=== PATIENT | female | born 1935 | race Caucasian/White ===

== ENCOUNTER → 2017-08-30 | Outpatient (CLI) | payer OTHER ==
[~2017-08-30] MED LIST: AMLO5TAB2 PO; BIOT10005 PO; CHOL200074 PO; CITA10TA7 PO; IRON PO; MELO-106 PO; PANT40TA25 PO; SIMV20TA6 PO; VALS320T16 PO
== END | disposition home or self-care (01) ==
LOC: RAH 10:02
PROVIDERS: ATTEND Internal Medicine
DX: K44.9 Diaphragmatic hernia without obstruction or gangrene (principal); K21.9 Gastro-esophageal reflux disease without esophagitis
CPT/HCPCS: 74240

== ENCOUNTER 2018-12-27 08:00 | Inpatient (IN) | payer OTHER ==
[2018-12-26 17:57] LABS: POTASSIUM 4.5 mmol/L (3.5-5.1)
[2018-12-26 18:03] VITALS: BP 140/71
[2018-12-27] VITALS (23 sets, daily range): BP systolic 95–146; BP diastolic 40–70
[~2018-12-27] VITALS: Ht 154.9 cm; Wt 74.6 kg
[2018-12-27] MEDS: LACTATED RINGERS 1000ML 1,000 ML IV SCH ×2 (06:00→21:00)
[2018-12-27] MEDS: VANCOMYCIN HCL 1 GM VIAL TP SCH ×2 (06:00→14:00)
[~2018-12-27 08:00] MED LIST changes: -AMLO5TAB2 PO; +AMLO5TAB9 PO; -BIOT10005 PO; +BIOTIN PO; -CHOL200074 PO; +MONT10TA24 PO; +PHARMACY COMMUNICATION MISC SCH; +SIMV-43 PO; -SIMV20TA6 PO; +VITAMIN D3 PO
[2018-12-27] MEDS: CEFAZOLIN SODIUM 1 GM VIAL ONE ×2 (10:28→13:30)
[2018-12-27] MEDS ORDERED: MIDAZOLAM HCL 1 MG/ML 2ML VIAL ONE (12:49)
[2018-12-27] MEDS ORDERED: DEXAMETHASONE SOD PHOSPHATE 10MG/ML 1ML VIAL ONE (12:49)
[2018-12-27] MEDS ORDERED: ONDANSETRON HCL 4 MG/2 ML VIAL ONE (12:49)
[2018-12-27] MEDS ORDERED: LIDOCAINE PF 2% 5ML ABBOJECT ONE (12:49)
[2018-12-27] MEDS ORDERED: PROPOFOL 10 MG/ML 20ML VIAL IV ONE (12:49)
[2018-12-27] MEDS ORDERED: FENTANYL CITRATE PF 50 MCG/1 ML 2ML VIAL ONE (12:51)
[2018-12-27] MEDS ORDERED: ROCURONIUM 10MG/1ML SYR 10 MG/ML ML ONE (12:52)
[2018-12-27] MEDS ORDERED: VANCOMYCIN HCL 1 GM VIAL ONE (13:37)
[2018-12-27] MEDS ORDERED: TRAMADOL HCL 50 MG TABLET PO PRN (14:15)
[2018-12-27] MEDS ORDERED: OXYCODONE HCL 5 MG TAB PO PRN ×2 (14:15)
[2018-12-27] MEDS: SODIUM CHLORIDE 0.9% 1000ML 1,000 ML IV SCH ×2 (14:20→23:36)
--- NOTE | 2018-12-27 18:30 | NUR ---
INITIAL MET W PT A [place] SPOUSE [facility] AT [facility]- PT S/P PROCEUDR ON POST OP SEROMA. ADDRESSES VERIFIED AND UPDATED, PHYSICAL ADDRESS ADDED. PT AAOX3, LIVES WITH [facility] WHO WILL PROVIDE TRANSPORT, HAS DME AT HOME- [facility]- HAS CURRENT HOME HEALTH- MCGREGOR, ELIZABETH//C JOHN SIGNED NOTE IN CHART FOR MD IN AM TO REMIND TO GIVE NEW ORDER FOR HH/ DRGS ETC. PRIMARY RN AWARE, CM TO FOLLOW UP CM TO FOLLOW UP
[2018-12-27] MEDS: RIFAMPIN 300 MG CAPSULE PO SCH (20:36)
[2018-12-27] MEDS: CEFAZOLIN SODIUM 1 GM VIAL IVP SCH (20:36)
[2018-12-27] MEDS: ASPIRIN 81 MG EC TAB PO SCH (20:36)
[2018-12-27] MEDS ORDERED: MONTELUKAST SODIUM 10 MG TAB PO SCH (21:00)
[2018-12-27] MEDS: ACETAMINOPHEN EXTRA STRENGTH 500 MG TABLET PO SCH (21:53)
[2018-12-28 03:15] VITALS: BP 123/57
[2018-12-28] MEDS: CEFAZOLIN SODIUM 1 GM VIAL IVP SCH (03:38)
[2018-12-28 03:52] LABS: HEMATOCRIT 34.1 % (36-48); MEAN CORPUSCULAR HEMOGLOBIN 31.1 pg (27.0-33.0); MEAN CORPUSCULAR HGB CONC 33.4 g/dL (32.0-36.0); MEAN CORPUSCULAR VOLUME 93.2 fL (79-99); PLATELET COUNT (AUTO) 312 K/uL (130-400); RED BLOOD CELL COUNT(AUTO) 3.66 MIL/uL (4.00-5.50); RED CELL DISTRIBUTION WIDTH 13.9 % (11.0-15.5); WHITE BLOOD COUNT (AUTO) 3.7 K/uL (4.8-10.8)
[2018-12-28 04:07] LABS: POTASSIUM 4.2 mmol/L (3.5-5.1)
[2018-12-28] MEDS: ACETAMINOPHEN EXTRA STRENGTH 500 MG TABLET PO SCH (05:26)
[2018-12-28 07:40] VITALS: BP 126/58
[2018-12-28] MEDS ORDERED: LOSARTAN 100 MG TABLET PO SCH (09:00)
[2018-12-28] MEDS ORDERED: CITALOPRAM 20 MG TABLET PO SCH (09:00)
[2018-12-28] MEDS ORDERED: POLYETHYLENE GLYCOL 3350 17 GM POWD.PACK PO SCH (09:00)
[2018-12-28] MEDS ORDERED: AMLODIPINE BESYLATE 5 MG TAB PO SCH (09:00)
[2018-12-28] MEDS ORDERED: PANTOPRAZOLE SODIUM 40 MG TABLET.DR PO SCH (09:00)
[2018-12-28] MEDS ORDERED: MELOXICAM 7.5 MG TABLET PO SCH (09:00)
[2018-12-28] MEDS: ASPIRIN 81 MG EC TAB PO SCH (09:39)
[2018-12-28] MEDS: RIFAMPIN 300 MG CAPSULE PO SCH (09:39)
[2018-12-28 12:13] VITALS: BP 116/59
--- NOTE | 2018-12-28 15:30 | NUR ---
pt stated understanding of all d/c instructions on aftercare for a seroma; dressing changed and hv drain removed from right hip, no bleeding noted at time of removal, insertion site normal in appearance, steri strips in place to inc. line and it well approx. with no drainage noted; thanh wrap dressing applied over 4x4 gauze and medipore tape dresssing as directed by dr osborne.
--- NOTE | 2018-12-28 19:52 | NUR ---
cm note spoke to Jagruti ME[employer] ASSOCIATE with dr escalante regarding pt request for Home health, states pt will not require HH, and updated primary nurse and pt.
[2018-12-30] MEDS ORDERED: BISACODYL 10 MG SUPP.RECT RC PRN (14:15)
== END 2018-12-28 15:45 | disposition home or self-care (01) | DRG 909 ==
LOC: DAHIP 08:48 → EDSTATUS 10:30 → 4BH 15:29
PROVIDERS: ADMIT Orthopaedic Surgery; ATTEND Orthopaedic Surgery
PROC: 0S990ZZ Drainage of Right Hip Joint, Open Approach (ICD-10-PCS; principal; 2018-12-27 10:30)
DX: M96.842 Postprocedural seroma of a musculoskeletal structure following a musculoskeletal system procedure (principal); Z96.641 Presence of right artificial hip joint; Z88.1 Allergy status to other antibiotic agents; E78.00 Pure hypercholesterolemia, unspecified; I10 Essential (primary) hypertension
CPT/HCPCS: 36415; 80048; 85027; 87070; 87076; 87205; 93005; 97039; A4606; G0378; J0690; J1100; J2001; J2250; J2405; J2704; J3010; J3370; J7120

== ENCOUNTER → 2019-08-15 | Outpatient (CLI) | payer OTHER ==
[~2019-08-15] MED LIST changes: -MELO-106 PO; -MONT10TA24 PO; +MONT10TA26 PO; -PHARMACY COMMUNICATION MISC SCH
--- NOTE | 2019-08-15 10:40 | NUR ---
[facility] [place] PRES[place] WITH MILD PHARYNGEAL DYSPHAGIA AT THIS TIME. RECOMMEND REGULAR SOLIDS, THIN (NO STRAW) LIQUIDS, PILLS WHOLE WITH LIQUIDS TOLERATED. COMPENSATORY STRATEGIES: EXTRA DRY SWALLOWS, SMALL BITES/SIPS, NO STRAWS, SIT UPRIGHT. MUSIC PASTOR REVIEWED RESULTS AND RECOMMENDATIONS WITH Pt. MUSIC PASTOR EDUCATED Pt ON RISKS AND CONSEQUENCES OF ASPIRATION. ALL QUESTIONS ANSWERED AT THIS TIME. Addendum: 08/15/[address] LAURA GLOVER Amended: Links added.
== END | disposition home or self-care (01) ==
LOC: RAH 09:52
PROVIDERS: ATTEND Internal Medicine Gastroenterology
DX: R13.10 Dysphagia, unspecified (principal); R63.3 Feeding difficulties
CPT/HCPCS: 74230; 92611

== ENCOUNTER 2022-08-23 13:05 | Inpatient (IN) | payer OTHER ==
[~2022-08-23] VITALS: Ht 152.4 cm; Wt 80.6 kg
[~2022-08-23 13:05] MED LIST changes: +AMLO-257 PO; -AMLO5TAB9 PO; -CITA10TA7 PO; +CITA10TA89 PO; +MONT-39 PO; -MONT10TA26 PO; -PANT40TA25 PO; +PANT40TA54 PO
[2022-08-23] MEDS ORDERED: DIPH,PERTUSS(ACELL),TET VAC/PF 0.5 ML VIAL IM ONE (14:00)
[2022-08-23 14:58] LABS: BASOPHILS % (AUTO) 0.6 % (0.0-5.0); EOSINOPHILS % (AUTO) 1.2 % (0.0-8.0); HEMATOCRIT 42.7 % (36-48); LYMPHOCYTES % (AUTO) 10.4 % (21.0-51.0); MEAN CORPUSCULAR HEMOGLOBIN 29.8 pg (27.0-33.0); MEAN CORPUSCULAR HGB CONC 32.6 g/dL (32.0-36.0); MEAN CORPUSCULAR VOLUME 91.6 fL (79-99); NEUTROPHILS % (AUTO) 81.2 % (40.0-77.0); PLATELET COUNT (AUTO) 302 K/uL (130-400); RED BLOOD CELL COUNT(AUTO) 4.66 MIL/uL (4.00-5.50); RED CELL DISTRIBUTION WIDTH 12.8 % (11.0-15.5); WHITE BLOOD COUNT (AUTO) 12.6 K/uL (4.8-10.8)
[2022-08-23] MEDS ORDERED: 0.9%NACL 1000ML 1,000 ML IV SCH (15:00)
[2022-08-23] MEDS ORDERED: ONDANSETRON 4MG INJ IV ONE (15:00)
[2022-08-23] MEDS ORDERED: HYDRALAZINE 20MG/ML VIAL IV ONE (15:00)
[2022-08-23 15:09] LABS: CREATININE 0.9 mg/dL (0.5-1.5); POTASSIUM 3.6 mmol/L (3.5-5.1)
[2022-08-23 15:13] LABS: ALBUMIN 3.2 g/dL (3.5-5.0); TOTAL PROTEIN, SERUM 5.9 g/dL (6.0-8.3)
[2022-08-23] MEDS ORDERED: ACETAMINOPHEN 500 MG TABLET PO ONE (16:00)
[2022-08-23] MEDS ORDERED: KETOROLAC 30MG VIAL (30MG/ML) IVP ONE (16:00)
[2022-08-23] MEDS ORDERED: KCL 20 MEQ ERTAB PO PRN (16:30)
[2022-08-23] MEDS ORDERED: GUAIFENESIN SUGAR-FREE 100 MG/5 ML UDCUP PO PRN (16:30)
[2022-08-23] MEDS ORDERED: POLYETHYLENE GLYCOL 3350 17 GM POWD.PACK PO PRN (16:30)
[2022-08-23] MEDS ORDERED: POTASSIUM CHLORIDE 10% ELIXIR 20 MEQ/15 ML UDCUP PO PRN (16:30)
[2022-08-23] MEDS ORDERED: HYDRALAZINE 25MG TABLET PO PRN (16:30)
[2022-08-23] MEDS ORDERED: ARTIFICAL TEARS SOL 15 ML OP PRN (16:30)
[2022-08-23] MEDS ORDERED: POTASSIUM CHLORIDE 20MEQ/100ML 100 ML IV PRN ×2 (16:30)
[2022-08-23] MEDS: INSULIN HUMULIN R 100 UNIT/ML 3ML SQ SCH ×2 (16:30→21:00)
[2022-08-23] MEDS ORDERED: DOCUSATE SODIUM 100 MG CAP PO PRN (16:30)
[2022-08-23] MEDS ORDERED: MAGNESIUM 2GM PREMIX 50ML 50 ML IV PRN (16:30)
[2022-08-23] MEDS ORDERED: ALPRAZOLAM 0.5 MG TABLET PO PRN (16:30)
[2022-08-23] MEDS ORDERED: ACETAMINOPHEN 325 MG TAB PO PRN (16:30)
[2022-08-23] MEDS ORDERED: ALBUTEROL 0.083% 2.5 MG/3 ML INH IH PRN (16:30)
[2022-08-23] MEDS ORDERED: LOPERAMIDE HCL 2 MG CAP PO PRN (16:30)
[2022-08-23] MEDS ORDERED: BENZOCAINE/MENTH/CETYLPYRD CL 1 EACH LOZENGE MM PRN (16:30)
[2022-08-24] VITALS (7 sets, daily range): BP systolic 138–163; BP diastolic 67–76
[2022-08-24] MEDS: ACETAMINOPHEN 325 MG TAB PO PRN ×3 (01:52→22:27)
[2022-08-24] MEDS: INSULIN HUMULIN R 100 UNIT/ML 3ML SQ SCH ×4 (06:05→20:05)
[2022-08-24 07:15] LABS: ALBUMIN 2.8 g/dL (3.5-5.0); CREATININE 0.9 mg/dL (0.5-1.5); POTASSIUM 3.8 mmol/L (3.5-5.1); TOTAL PROTEIN, SERUM 5.3 g/dL (6.0-8.3)
[2022-08-24] MEDS ORDERED: NON-FORMULARY MEDICATION 1 EACH (Valsartan 320 MG) PO SCH (09:00)
[2022-08-24] MEDS: PANTOPRAZOLE 40 MG TAB DR PO SCH (09:41)
[2022-08-24] MEDS: LOSARTAN 100 MG TABLET PO SCH (09:41)
[2022-08-24] MEDS: AMLODIPINE 5 MG TAB PO SCH (09:41)
[2022-08-24] MEDS: ONDANSETRON 4MG INJ IV PRN (14:52)
[2022-08-24] MEDS ORDERED: MECLIZINE HCL 25 MG TABLET PO ONE (15:00)
[2022-08-25 04:00] VITALS: BP 144/74
[2022-08-25] MEDS: MECLIZINE HCL 25 MG TABLET PO PRN ×2 (04:41→22:02)
[2022-08-25] MEDS: INSULIN HUMULIN R 100 UNIT/ML 3ML SQ SCH ×4 (06:25→21:00)
[2022-08-25 08:48] VITALS: BP 138/58
[2022-08-25] MEDS: LOSARTAN 100 MG TABLET PO SCH (09:07)
[2022-08-25] MEDS: PANTOPRAZOLE 40 MG TAB DR PO SCH (09:07)
[2022-08-25] MEDS: AMLODIPINE 5 MG TAB PO SCH (09:07)
[2022-08-25] MEDS: ACETAMINOPHEN 325 MG TAB PO PRN (10:47)
[2022-08-25 12:00] VITALS: BP 141/60
[2022-08-25 16:00] VITALS: BP 141/62
[2022-08-25 19:00] VITALS: BP 141/68
[2022-08-26 00:03] VITALS: BP_SYST 108; BP_SYST 161; BP_DIAS 60; BP_DIAS 75
[2022-08-26 04:00] VITALS: BP 151/80
[2022-08-26] MEDS: INSULIN HUMULIN R 100 UNIT/ML 3ML SQ SCH ×4 (05:49→21:00)
[2022-08-26 08:32] VITALS: BP 161/68
[2022-08-26] MEDS: PANTOPRAZOLE 40 MG TAB DR PO SCH (08:35)
[2022-08-26] MEDS: MECLIZINE HCL 25 MG TABLET PO PRN (08:35)
[2022-08-26] MEDS: AMLODIPINE 5 MG TAB PO SCH (08:35)
[2022-08-26] MEDS: LOSARTAN 100 MG TABLET PO SCH (08:35)
[2022-08-26 11:37] VITALS: BP 158/68
[2022-08-26] MEDS: MECLIZINE HCL 25 MG TABLET PO SCH ×2 (16:35→20:06)
[2022-08-26 16:45] VITALS: BP 145/69
[2022-08-26 20:00] VITALS: BP 153/70
[2022-08-26] MEDS: ACETAMINOPHEN 325 MG TAB PO PRN (21:11)
[2022-08-27] VITALS: BP 154/80
[2022-08-27 04:00] VITALS: BP 156/66
[2022-08-27] MEDS: INSULIN HUMULIN R 100 UNIT/ML 3ML SQ SCH ×4 (06:11→20:03)
[2022-08-27 08:00] VITALS: BP 172/85
[2022-08-27] MEDS: PANTOPRAZOLE 40 MG TAB DR PO SCH (08:37)
[2022-08-27] MEDS: LOSARTAN 100 MG TABLET PO SCH (08:37)
[2022-08-27] MEDS: MECLIZINE HCL 25 MG TABLET PO SCH ×3 (08:37→20:04)
[2022-08-27] MEDS: AMLODIPINE 5 MG TAB PO SCH (08:37)
[2022-08-27] MEDS ORDERED: MECL-160 PO (08:49)
[2022-08-27 12:00] VITALS: BP 156/63
[2022-08-27] MEDS: LACTULOSE 20 GM/30 ML UDCUP PO PRN ×2 (13:23→20:04)
[2022-08-27 16:00] VITALS: BP 168/67
[2022-08-27 20:00] VITALS: BP 150/78
[2022-08-27] MEDS: ACETAMINOPHEN 325 MG TAB PO PRN (21:46)
[2022-08-27] MEDS: ONDANSETRON 4MG INJ IV PRN (21:46)
[2022-08-28] VITALS: BP 156/76
[2022-08-28 04:00] VITALS: BP 152/72
[2022-08-28] MEDS: INSULIN HUMULIN R 100 UNIT/ML 3ML SQ SCH ×4 (06:19→21:00)
[2022-08-28 08:00] VITALS: BP 150/74
[2022-08-28] MEDS: AMLODIPINE 5 MG TAB PO SCH (08:41)
[2022-08-28] MEDS: MECLIZINE HCL 25 MG TABLET PO SCH ×3 (08:41→19:44)
[2022-08-28] MEDS: PANTOPRAZOLE 40 MG TAB DR PO SCH (08:41)
[2022-08-28] MEDS: LOSARTAN 100 MG TABLET PO SCH (08:41)
[2022-08-28 12:00] VITALS: BP 141/81
[2022-08-28] MEDS: ACETAMINOPHEN 325 MG TAB PO PRN ×2 (14:07→19:45)
[2022-08-28 16:00] VITALS: BP 146/45
[2022-08-28 20:00] VITALS: BP 140/70
[2022-08-29] VITALS: BP 152/70
[2022-08-29 04:00] VITALS: BP 145/69
[2022-08-29] MEDS: ACETAMINOPHEN 325 MG TAB PO PRN (05:48)
[2022-08-29] MEDS: INSULIN HUMULIN R 100 UNIT/ML 3ML SQ SCH (05:54)
[2022-08-29 08:00] VITALS: BP 136/69
[2022-08-29] MEDS: PANTOPRAZOLE 40 MG TAB DR PO SCH (09:00)
[2022-08-29] MEDS: AMLODIPINE 5 MG TAB PO SCH (09:01)
[2022-08-29] MEDS: MECLIZINE HCL 25 MG TABLET PO SCH (09:01)
[2022-08-29] MEDS: LOSARTAN 100 MG TABLET PO SCH (09:01)
[2022-08-29 11:35] VITALS: BP 152/74
== END 2022-08-29 12:04 | disposition home or self-care (01) | DRG 605 ==
LOC: EDH 13:05 → OBSVTOIN 16:22 → EDHIP 16:22 → 3BH 08-24 01:03
PROVIDERS: ADMIT Internal Medicine Critical Care Medicine; ATTEND Internal Medicine Critical Care Medicine
DX: S01.01XA Laceration without foreign body of scalp, initial encounter (principal); I10 Essential (primary) hypertension; E78.5 Hyperlipidemia, unspecified; S06.0X0A Concussion without loss of consciousness, initial encounter; K21.9 Gastro-esophageal reflux disease without esophagitis; E78.00 Pure hypercholesterolemia, unspecified; S09.8XXA Other specified injuries of head, initial encounter; I48.91 Unspecified atrial fibrillation; H55.09 Other forms of nystagmus; W18.30XA Fall on same level, unspecified, initial encounter; Y93.89 Activity, other specified; Y92.89 Other specified places as the place of occurrence of the external cause; Z68.34 Body mass index [BMI] 34.0-34.9, adult
CPT/HCPCS: 36415; 70450; 70551; 80053; 82948; 84484; 85025; 90715; 93005; 94760; 97039; G0378; J0360; J1885; J2405; J7030

== ENCOUNTER → 2022-10-19 | Outpatient (CLI) | payer OTHER ==
[~2022-10-19] MED LIST changes: +MECL-160 PO
== END | disposition home or self-care (01) ==
LOC: RAH 12:41
PROVIDERS: ATTEND Family Medicine
DX: M47.812 Spondylosis without myelopathy or radiculopathy, cervical region (principal); M48.02 Spinal stenosis, cervical region
CPT/HCPCS: 72141

== ENCOUNTER → 2023-07-28 | Outpatient (CLI) | payer OTHER ==
[~2023-07-28] MED LIST changes: -MECL-160 PO; +MECL-302 PO
== END | disposition home or self-care (01) ==
LOC: OIH 13:19
PROVIDERS: ATTEND Family Medicine
DX: Z13.6 Encounter for screening for cardiovascular disorders (principal); R93.1 Abnormal findings on diagnostic imaging of heart and coronary circulation
CPT/HCPCS: 75571